=== PATIENT | female | born 1985 | race Caucasian/White ===

== ENCOUNTER → 2019-09-24 | Outpatient (CLI) | payer BC ==
--- NOTE | 2019-09-28 09:13 | MM ---
Reason for exam: clinical finding. Last mammogram was performed 5 years ago. History: Patient has history of other cancer at age 29 and is nulliparous. Family history of breast cancer in maternal grandmother at age 65. Took hormonal contraceptives for 7 years. Indicated problem(s): lump or thickening in the right breast. Physical Findings: Nurse Summary: 1cm nodule in the right breast at 4 o'clock (nurse juany). MG Diagnostic Mammo w CAD ROSA Bilateral CC and MLO view(s) were taken. Prior study comparison: October 05, 2014, bilateral MG diagnostic mammo w CAD ROSA. The breast tissue is heterogeneously dense. This may lower the sensitivity of mammography. There is a 2 x 3mm right superior asymmetry 11cm from nipple on the right MLO that is surrounded by dense tissue on spot MLO but questionably persists, ultrasound will be performed. No suspicious abnormality on the left. These results were verbally communicated with the patient and result sheet given to the patient on 09/24/19. ASSESSMENT: Incomplete: need additional imaging evaluation, BI-RAD 0 RECOMMENDATION: Ultrasound of the right breast. (right palpable and superior right breast)
--- NOTE | 2019-09-28 09:14 | USB ---
Reason for exam: additional evaluation requested from abnormal screening. History: Patient has history of other cancer at age 29 and is nulliparous. Family history of breast cancer in maternal grandmother at age 65. Took hormonal contraceptives for 7 years. US Breast Limited RT Right limited breast ultrasound including focal area of concern, retroareolar and axilla demonstrates a 0.8 x 0.3 x 0.5cm oval, cystic lesion at 1 o'clock and a 0.6 x 0.3 x 0.5cm cystic lesion at 1 o'clock. These results were verbally communicated with the patient and result sheet given to the patient on 09/24/19. ASSESSMENT: Probably benign, BI-RAD 3 RECOMMENDATION: Follow-up diagnostic mammogram of the right breast in 6 months.
== END | disposition home or self-care (01) ==
LOC: RADMAMWWP 15:08
PROVIDERS: ATTEND Family Medicine
DX: R92.8 Other abnormal and inconclusive findings on diagnostic imaging of breast (principal)
CPT/HCPCS: 77066

== ENCOUNTER → 2020-04-03 | Outpatient (CLI) | payer OTHER ==
--- NOTE | 2020-04-03 14:13 | MM ---
Reason for exam: follow-up at short interval from prior study. Last mammogram was performed 6 months ago. History: Patient has history of other cancer at age 29 and is nulliparous. Family history of breast cancer in maternal grandmother at age 65. Took hormonal contraceptives for 7 years. Physical Findings: Nurse Summary: 0.5cm nodule in the right breast at 3 o'clock and 7 o'clock (nurse ibis). MG 3D Diag Mammo W/Cad RT CC and MLO view(s) were taken of the right breast. Prior study comparison: September 24, 2019, bilateral MG diagnostic mammo w CAD ROSA. October 05, 2014, bilateral MG diagnostic mammo w CAD ROSA. The breast tissue is extremely dense which could obscure a lesion on mammography. There is no discrete abnormality including area of concern. Ultrasound recommended. These results were verbally communicated with the patient and result sheet given to the patient on 04/03/20. ASSESSMENT: Incomplete: need additional imaging evaluation, BI-RAD 0 RECOMMENDATION: Ultrasound of the right breast. Manage patient on a clinical basis.
--- NOTE | 2020-04-03 14:14 | USB ---
Reason for exam: additional evaluation requested from abnormal screening. History: Patient has history of other cancer at age 29 and is nulliparous. Family history of breast cancer in maternal grandmother at age 65. Took hormonal contraceptives for 7 years. US Breast Limited RT Right limited breast ultrasound including focal area of concern, retroareolar and axilla demonstrates no cystic or solid lesion seen. These results were verbally communicated with the patient and result sheet given to the patient on 04/03/20. ASSESSMENT: Benign, BI-RAD 2 RECOMMENDATION: Routine screening mammogram of both breasts at age 42.
== END | disposition home or self-care (01) ==
LOC: RADMAMWWP 12:48
PROVIDERS: ATTEND Family Medicine
DX: R92.8 Other abnormal and inconclusive findings on diagnostic imaging of breast (principal); N63.14 Unspecified lump in the right breast, lower inner quadrant
CPT/HCPCS: 77061; 77065